=== PATIENT | female | born 1935 | race Caucasian/White ===

== ENCOUNTER 2020-10-20 17:54 | Emergency (ER) | payer MEDICARE, SELFPAY ==
--- NOTE | 2020-10-20 | XR_ITS ---
EXAMINATION: XR CHEST CLINICAL INFORMATION: General weakness COMPARISON: None TECHNIQUE: Frontal view of the chest was obtained. FINDINGS: There is asymmetric left base opacity. The appearance is more consistent with calcification, possibly a pleural plaque, rather than infiltrate. A lateral view could be helpful for evaluation. Right lung is clear. No pleural effusion or pneumothorax. Calcified aortic arch. Normal heart size. S-shaped thoracolumbar scoliosis. XR/XR chest 1V IMPRESSION: Asymmetric left base opacity. The appearance is more consistent with a calcification, such as a pleural plaque, rather than an infiltrate.
[2020-10-20 19:45] VITALS: BP 148/77; PULSE 87; RESP 14; TEMP 36.1; O2SAT 98
[2020-10-20 20:02] VITALS: BP 151/82; PULSE 90; RESP 16; TEMP 37.6; O2SAT 97; BMI 19.5
--- NOTE | 2020-10-20 20:11 | ECG_ITS ---
Test Reason : WEAKNESS Blood Pressure : / mmHG Vent. Rate : 073 BPM Atrial Rate : 073 BPM P-R Int : 148 ms QRS Dur : 070 ms QT Int : 376 ms P-R-T Axes : -10 -35 -03 degrees QTc Int : 414 ms Normal sinus rhythm Left axis deviation Minimal voltage criteria for LVH, may be normal variant Cannot rule out Anterior infarct (cited on or before 08-JAN-2012) Abnormal ECG When compared with ECG of 08-JAN-2012 10:05, No significant change was found Referred By: Generic ED Physician Electronically Signed By:Jb Reyna
--- NOTE | 2020-10-20 20:27 | ED.GENADULT ---
HPI - General Adult General Chief complaint: General Medical Stated complaint: weakness Time Seen by Provider: 10/20/20 20:25 Source: patient Mode of arrival: ambulatory Limitations: no limitations History of Present Illness HPI narrative: 85 y/o female with history of GERD, Acosta's esophagus, UTI's, HTN, DM2, HLD who presents to the ED with generalized weakness. Patient reports decreased PO intake with a 5 lb weight loss in 1 week. She has been having a hard time walking due to generalized leg weakness. She has a history of UTI's in the past but denies all urinary symptoms at this time. She denies fever, chills, nausea, vomiting, diarrhea, SOB, chest pain, or cough. She denies sick contacts. Spoke with her daughter who reports worsening tremors at home. Unsafe to walk around due to weakness and unsteady gait. She lives at home with her mentally challenged son. She went to the store this week and then could not get out of bed the rest of the day because she was so exhausted. MD complaint: generalized weakness Onset (ago): week(s) (1) Severity: moderate Relieving factors: rest Exacerbating factors: movement Associated symptoms: loss of appetite, malaise and weakness Treatments prior to arrival: none Related Data Allergies Allergy/AdvReac Type Severity Reaction Status Date / Time No Known Allergies Allergy Verified 10/20/20 20:02 Review of Systems Review of Systems: Constitutional: No Fever, No Chills ENT/Mouth: No sore throat, No Rhinorrhea Cardiovascular: No Chest Pain, No SOB, No Orthopnea, No Edema Respiratory: No Cough, No Sputum, No Wheezing, No dyspnea Gastrointestinal: No Nausea, No Vomiting, No Diarrhea, No abdominal Pain Genitourinary: No Dysuria, No Urinary Frequency, No Hematuria Musculoskeletal: No joint pain, No Myalgias Skin: No Skin Lesions, No rash Neuro: + Weakness, No Numbness, No Dizziness, No Headache, +tremors Psych: No Anxiety/Panic, No Depression Heme/Lymph: No Bruising, No Lymphadenopathy Endocrine: No Polyuria, No Polydipsia PMFSH Past Medical History Attestation statement: The following information was validated with the patient. Medical History Anxiety Hypertension Sepsis UTI (urinary tract infection) Surgical History (Updated 10/20/20 @ 20:09 by Belle Mei) H/O: hysterectomy Social History Social History Advance Directives: No Advance Directives Information Provided: Yes Physical Exam Vital Signs: Vital Signs: Last Vital Signs Temp 99.6 F 10/20/20 20:02 Pulse 90 10/20/20 20:02 Resp 16 10/20/20 20:02 BP 151/82 H 10/20/20 20:02 Pulse Ox 97 10/20/20 20:02 Body Mass Index 19.5 Appearance: Alert. Oriented X3. No acute distress. Eyes: Pupils equal, round and reactive to light. ENT: Pharynx normal. Neck: Normal inspection. Neck supple. CVS: Normal heart rate and rhythm. 4/5 systolic murmur Respiratory: No respiratory distress. Breath sounds normal. Abdomen: Soft and nontender. +BS x4 Skin: Skin warm and dry. Normal skin color. Normal skin turgor. No rashes. Extremities: No lower extremity edema. Negative Dylan's sign. Neuro: Oriented X 3. No motor deficit. No sensory deficit. Course Course Course Narrative: 85 y/o female presenting with generalized weakness, loss of appetite, weight loss x1 week. No other complaints. Exam is non-focal. Low suspicion for CVA given her examination and duration of symptoms. Concern for UTI given her history vs possible viral syndrome. VSS and she appears well on arrival. Will get cultures, lab workup, EKG. Signed out to Cherie Perez PA-C who will assume care. Medical Decision Making Lab Data Result diagrams: 10/20/20 20:43 10/20/20 20:43 Labs: Lab Results 10/20/20 10/20/20 10/20/20 Range/Units 20:42 20:43 20:43 WBC 6.5 (4.8-10.8) X10*3/uL RBC 4.34 (4.20-5.50) X10*6/uL Hgb 13.4 (12.0-16.0) g/dl Hct 39.9 (37-47) % MCV 91.9 (80-98) fL MCH 30.9 (27.0-33.0) pg MCHC 33.6 (31.0-35.0) g/dl RDW 11.5 (11.0-16.0) % Plt Count 217 (160-400) X10*3/uL MPV 10.2 (9.4-12.3) fL Immature Gran % (Auto) 0.3 (0.0-0.4) % Neut % (Auto) 60.5 (45-73) % Lymph % (Auto) 23.8 (20-40) % [facility] % (Auto) 14.3 H (2-11) % Eos % (Auto) 0.8 (0-4) % Baso % (Auto) 0.3 (0-2) % Lymph # (Auto) 1.6 (1.2-4.9) X10*3/uL [facility] # (Auto) 0.9 (0.1-1.2) X10*3/uL Eos # (Auto) 0.1 (0.0-0.4) X10*3/uL Baso # (Auto) 0.0 (0.0-0.2) X10*3/uL Abs Immat Gran (auto) 0.02 (0.00-0.03) X10*3/uL Absolute Neuts (auto) 4.0 (2.0-8.3) X10*3/uL Absolute Nucleated RBC 0.000 (0.0-0.012) X10*3/uL Nucleated RBC % (auto) 0.0 (0.0-0.2) /100WBC Hold Blue Top SEE NOTE Lactic Acid 0.9 (0.5-2.0) mmol/L Urine Color Urine Appearance Urine pH (5.0-8.0) Ur Specific [place] (1.005-1.025) Urine Protein (NEG-TRACE) MG/DL Urine Glucose (UA) (NEG) MG/DL Urine Ketones (NEG) MG/DL Urine Blood (NEG) Urine Nitrite (NEG) Ur Leukocyte Esterase (NEG) Urine RBC (0) /HPF Urine WBC (0-4) /HPF Ur Squamous Epith Cells /LPF Urine Bacteria /LPF 10/20/20 Range/Units 20:43 WBC (4.8-10.8) X10*3/uL RBC (4.20-5.50) X10*6/uL Hgb (12.0-16.0) g/dl Hct (37-47) % MCV (80-98) fL MCH (27.0-33.0) pg MCHC (31.0-35.0) g/dl RDW (11.0-16.0) % Plt Count (160-400) X10*3/uL MPV (9.4-12.3) fL Immature Gran % (Auto) (0.0-0.4) % Neut % (Auto) (45-73) % Lymph % (Auto) (20-40) % [facility] % (Auto) (2-11) % Eos % (Auto) (0-4) % Baso % (Auto) (0-2) % Lymph # (Auto) (1.2-4.9) X10*3/uL [facility] # (Auto) (0.1-1.2) X10*3/uL Eos # (Auto) (0.0-0.4) X10*3/uL Baso # (Auto) (0.0-0.2) X10*3/uL Abs Immat Gran (auto) (0.00-0.03) X10*3/uL Absolute Neuts (auto) (2.0-8.3) X10*3/uL Absolute Nucleated RBC (0.0-0.012) X10*3/uL Nucleated RBC % (auto) (0.0-0.2) /100WBC Hold Blue Top Lactic Acid (0.5-2.0) mmol/L Urine Color YELLOW Urine Appearance HAZY Urine pH 5.5 (5.0-8.0) Ur Specific [place] 1.020 (1.005-1.025) Urine Protein NEG (NEG-TRACE) MG/DL Urine Glucose (UA) NEG (NEG) MG/DL Urine Ketones 15 (NEG) MG/DL Urine Blood TRACE (NEG) Urine Nitrite POS H (NEG) Ur Leukocyte Esterase 1+ H (NEG) Urine RBC 0-2 (0) /HPF Urine WBC 15-29 H (0-4) /HPF Ur Squamous Epith Cells 3+ /LPF Urine Bacteria 4+ /LPF ECG Data Attestation: I personally reviewed and interpreted this ECG as follows: Interpretation: normal sinus rhythm HR 73 bpm, normal IL interval, left axis deviation, TWi in lead III and V1. no ST segment elevations.
[2020-10-20 21:00] LABS: Glucose Urine UA NEG (NEG); Leukocyte Esterase Urine 1+ (NEG); Nitrite Urine POS (NEG); PH 5.5 (5.0-8.0); Urine Blood TRACE (NEG); Urine Ketones 15 MG/DL (NEG); Urine Protein NEG (NEG-TRACE)
[2020-10-20 21:01] LABS: Color Urine YELLOW; MANUAL DIFF FLAG NO
[2020-10-20 21:02] LABS: Appearance Urine HAZY
[2020-10-20 21:03] LABS: Basophils Percent Auto 0.3 % (0-2); Eosinophils Absolute Auto 0.1 X10*3/uL (0.0-0.4); Eosinophils Percent Auto 0.8 % (0-4); Hematocrit 39.9 % (37-47); Hemoglobin 13.4 g/dl (12.0-16.0); Imm Gran Abs Auto 0.02 X10*3/uL (0.00-0.03); Imm Gran Pct Auto 0.3 % (0.0-0.4); Lymphocytes Absolute Auto 1.6 X10*3/uL (1.2-4.9); Lymphocytes Percent Auto 23.8 % (20-40); Mean Corpuscular HGB Conc 33.6 g/dl (31.0-35.0); Mean Corpuscular Hemoglobin 30.9 pg (27.0-33.0); Mean Corpuscular Volume 91.9 fL (80-98); Mean Platelet Volume 10.2 fL (9.4-12.3); Monocytes Absolute Auto 0.9 X10*3/uL (0.1-1.2); Monocytes Percent Auto 14.3 % (2-11); Neutrophils Percent Auto 60.5 % (45-73); Platelet Count 217 X10*3/uL (160-400); Red Blood Count 4.34 X10*6/uL (4.20-5.50); Red Cell Distribution Width 11.5 % (11.0-16.0); White Blood Count 6.5 X10*3/uL (4.8-10.8)
[2020-10-20 21:16] LABS: Bacteria Urine 4+ /LPF; RBC Urine 0-2 /HPF (0); Squamous Epithelial Cell Urine 3+ /LPF
[2020-10-20 21:23] LABS: Lactic Acid 0.9 mmol/L (0.5-2.0)
[2020-10-20 21:27] LABS: Alanine Aminotransferase 17 U/L (0-31); Alkaline Phosphatase 76 U/L (39-117); Anion Gap 14 (12-20); Aspartate Amino Transferase 17 U/L (5-31); Bilirubin Total 0.5 mg/dL (0.0-1.0); Blood Urea Nitrogen 13 mg/dL (9-16); Calcium 10.2 mg/dL (8.4-10.2); Carbon Dioxide 25 mmol/L (22-29); Chloride 103 mmol/L (96-108); Creatinine Clr Calc Pharmacy 40.7; Estimated Glomerular Filt Rate > 60; Glucose Random 125 mg/dL (60-115); Potassium 3.8 mmol/l (3.3-5.1); Sodium 138 mmol/L (135-145); Total Protein 6.5 g/dL (6.5-8.0)
[2020-10-20 22:57] LABS: Influenza A PCR NEGATIVE (Negative); Influenza B PCR NEGATIVE (Negative); Resp Syncy Virus RNA Qual PCR NEGATIVE (Negative); SARS COV2 PCR INHOUSE NEGATIVE (Negative)
[2020-10-20] MEDS: levoFLOXacin 500 MG TABLET 250 MG PO (23:06)
== END 2020-10-20 23:07 | disposition home or self-care (01) ==
PROVIDERS: Physician Assistant; Emergency Provider Internal Medicine; PCP Family Medicine
DX: R53.1 Weakness (principal); R63.4 Abnormal weight loss; R26.81 Unsteadiness on feet; Z79.899 Other long term (current) drug therapy; Z20.828 Contact with and (suspected) exposure to other viral communicable diseases
CPT/HCPCS: 0241U; 36415; 71045; 80053; 81001; 81003; 83605; 85025; 87040; 87077; 87086; 87088; 87186; 87205; 93005; 99284

== ENCOUNTER 2020-10-21 11:11 | Inpatient (IN) | payer MEDICARE, SELFPAY ==
[2020-10-21 11:24] VITALS: BP 183/77; PULSE 73; RESP 18; TEMP 36.7; O2SAT 96; BMI 18.9
--- NOTE | 2020-10-21 12:33 | ED_ITS ---
HPI - General Adult General Chief complaint: General Medical Stated complaint: sepsis? Time Seen by Provider: 10/21/20 12:33 Source: patient Mode of arrival: ambulatory Limitations: no limitations History of Present Illness HPI narrative: This is a pleasant 85-year-old female who presents as a call back for positive blood cultures. Medical history history as noted below; gastroesophageal reflux disease, Acosta's esophagus, recurrent UTI, hypertension, diabetes, hyperlipidemia. Related Data Home Medications Medication Instructions Recorded Confirmed aspirin 81 mg PO DAILY 10/21/20 10/21/20 atorvastatin 20 mg PO DAILY 10/21/20 10/21/20 bisoprolol fumarate 5 mg PO DAILY 10/21/20 10/21/20 doxazosin 2 mg PO DAILY 10/21/20 10/21/20 lorazepam 0.25 mg PO Q8H PRN 10/21/20 10/21/20 omeprazole 20 mg PO BID 10/21/20 10/21/20 Previous Rx's Medication Instructions Recorded levofloxacin 250 mg PO DAILY #4 tab 10/20/20 Allergies Allergy/AdvReac Type Severity Reaction Status Date / Time No Known Allergies Allergy Verified 10/21/20 11:24 Review of Systems Review of Systems: Constitutional: No Weight loss, No Fever, + Chills, No Night Sweats, No Fatigue, No Malaise ENT/Mouth: No Hearing loss, No Ear Pain, No Nasal Congestion, No Sinus Pain, No Hoarseness, No sore throat, No Rhinorrhea, No Swallowing Difficulty Eyes: No Eye Pain, No Swelling, No Redness, No Foreign Body, No Discharge, No Vision Changes Cardiovascular: No Chest Pain, No SOB, No Dyspnea on Exertion, No Orthopnea, No Edema, No Palpitations Respiratory: No Cough, No Sputum, No Wheezing, No Smoke Exposure, No Dyspnea Gastrointestinal: No Nausea, No Vomiting, No Diarrhea, No Constipation, No abdominal Pain, No Hematochezia, No Melena Genitourinary: no irregular bleeding, No Dysuria, No Urinary Frequency, No Hematuria, No Urinary Incontinence, No Urgency, No Flank Pain Musculoskeletal: No joint pain, + Myalgias, No Joint Swelling Skin: No Skin Lesions, No rash Neuro: Weakness, No Numbness, No Paresthesias, No Loss of Consciousness, No Dizziness, No Headache Psych: No Social Issues, Heme/Lymph: No Bruising, No Bleeding,No Lymphadenopathy Endocrine: No Polyuria, No Polydipsia, No Temperature Intolerance Yes all other systems are reviewed and are negative [facility] Past Medical History Medical History Anxiety Hypertension Sepsis UTI (urinary tract infection) Surgical History H/O: hysterectomy Social History Social History Alcohol intake: never Smoking Status: Never smoker Use of substances other than those prescribed or required for medical reasons: No Advance Directives: No Advance Directives Information Provided: Yes Physical Exam Vital Signs: Vital Signs: Last Vital Signs Temp 98.1 F 10/21/20 14:56 Pulse 68 10/21/20 14:56 Resp 18 10/21/20 14:56 BP 151/71 H 10/21/20 14:56 Pulse Ox 98 10/21/20 14:56 Body Mass Index 18.9 Reviewed Const: General: cooperative; No acute distress or intoxicated appearing Nutritional Appearance: average body habitus Orientation/consciousness: patient oriented x3 HENMT: Head: Yes normal to inspection Ears: hearing grossly normal bilaterally Eyes: General: appearance normal, both eyes and all related structures Visual Ballesteros: normal visual ballesteros by confrontation Neck: Neck: Yes normal visual inspection, No positive Brudzinski's sign, No positive Kernig's sign and No tender Thyroid: Thyroid normal Chest: Chest palpation & inspection: normal inspection of the chest Resp: Effort & Inspection: normal respiratory effort Auscultation: clear to auscultation bilaterally Cardio: Jugular venous distension: no JVD Rhythm: regular rhythm Heart sounds: S1 normal heart sound present and S2 normal heart sound present GI: Inspection: Yes normal to inspection Percussion: Yes normal to percussion Auscultation: normal bowel sounds : General: Yes no CVA tenderness Back/Spine/Pelvis: Back: no CVA tenderness Skin: General skin exam: no rashes or lesions noted Neuro: General: patient oriented x3 Extrem: General: Yes normal to inspection Course Course Course Narrative: 85-year-old above history return visit for positive blood cultures with Gram-negative rods blood culture 1. Positive urine culture with Gram-negative rods as well with no sensitivity available. She does report chills this and mild myalgias otherwise states this is sort of unusual for her she normally would have some sort of dysuria with her urinary symptoms the last couple infection she has not had any dysuria is any she will get the UTIs. Denies any abdominal pain, vaginal bleeding or discharge. No nausea vomiting diarrhea. No chest pain or shortness of breath. Labs reviewed including cultures. Given the positive blood culture or will repeat labs including lactic acid and blood cultures and she got dose of Levaquin yesterday and just picked up her today's dose has not taken yet. We will go ahead and give her dose of IV Levaquin. Reevaluation(s) Reevaluation #1: Labs overall stable. No leukocytosis, afebrile, non tachy. UA negative today this could be secondary to the fact that she has been on antibiotics. Given the positive bacteremia given dose of IV Levaquin repeat labs and plan for admission. Consultations Consultation #1: Case discussed with hospitalist for admission. Medical Decision Making Lab Data Result diagrams: 10/21/20 13:00 10/21/20 13:00 Labs: Lab Results 10/21/20 10/21/20 10/21/20 Range/Units 13:00 13:00 13:00 WBC 5.4 (4.8-10.8) X10*3/uL RBC 4.25 (4.20-5.50) X10*6/uL Hgb 13.2 (12.0-16.0) g/dl Hct 39.3 (37-47) % MCV 92.5 (80-98) fL MCH 31.1 (27.0-33.0) pg MCHC 33.6 (31.0-35.0) g/dl RDW 11.5 (11.0-16.0) % Plt Count 204 (160-400) X10*3/uL MPV 10.1 (9.4-12.3) fL Immature Gran % (Auto) 0.2 (0.0-0.4) % Neut % (Auto) 64.3 (45-73) % Lymph % (Auto) 21.4 (20-40) % [place] % (Auto) 13.2 H (2-11) % Eos % (Auto) 0.7 (0-4) % Baso % (Auto) 0.2 (0-2) % Lymph # (Auto) 1.2 (1.2-4.9) X10*3/uL [place] # (Auto) 0.7 (0.1-1.2) X10*3/uL Eos # (Auto) 0.0 (0.0-0.4) X10*3/uL Baso # (Auto) 0.0 (0.0-0.2) X10*3/uL Abs Immat Gran (auto) 0.01 (0.00-0.03) X10*3/uL Absolute Neuts (auto) 3.5 (2.0-8.3) X10*3/uL Absolute Nucleated RBC 0.000 (0.0-0.012) X10*3/uL Nucleated RBC % (auto) 0.0 (0.0-0.2) /100WBC PT 13.5 H (10.8-13.0) SEC INR 1.1 (0.9-1.1) APTT 46.3 H (24.1-38.0) SEC Sodium 137 (135-145) mmol/L Potassium 4.0 (3.3-5.1) mmol/l Chloride 102 (96-108) mmol/L Carbon Dioxide 24 (22-29) mmol/L Anion Gap 15 (12-20) BUN 11 (9-16) mg/dL Creatinine 0.74 (0.5-1.4) mg/dL Estim Creat Clear Calc 41.9 Estimated GFR > 60 Random Glucose 123 H (60-115) mg/dL Lactic Acid (0.5-2.0) mmol/L Calcium 10.1 (8.4-10.2) mg/dL Total Bilirubin 0.6 (0.0-1.0) mg/dL AST 16 (5-31) U/L ALT 14 (0-31) U/L Alkaline Phosphatase 71 (39-117) U/L Total Protein 6.4 L (6.5-8.0) g/dL Albumin 3.9 (3.5-5.0) g/dL Urine Color Urine Appearance Urine pH (5.0-8.0) Ur Specific [place] (1.005-1.025) Urine Protein (NEG-TRACE) MG/DL Urine Glucose (UA) (NEG) MG/DL Urine Ketones (NEG) MG/DL Urine Blood (NEG) Urine Nitrite (NEG) Ur Leukocyte Esterase (NEG) Urine RBC (0) /HPF Urine WBC (0-4) /HPF Ur Squamous Epith Cells /LPF Urine Bacteria /LPF 10/21/20 10/21/20 Range/Units 13:00 13:00 WBC (4.8-10.8) X10*3/uL RBC (4.20-5.50) X10*6/uL Hgb (12.0-16.0) g/dl Hct (37-47) % MCV (80-98) fL MCH (27.0-33.0) pg MCHC (31.0-35.0) g/dl RDW (11.0-16.0) % Plt Count (160-400) X10*3/uL MPV (9.4-12.3) fL Immature Gran % (Auto) (0.0-0.4) % Neut % (Auto) (45-73) % Lymph % (Auto) (20-40) % [place] % (Auto) (2-11) % Eos % (Auto) (0-4) % Baso % (Auto) (0-2) % Lymph # (Auto) (1.2-4.9) X10*3/uL [place] # (Auto) (0.1-1.2) X10*3/uL Eos # (Auto) (0.0-0.4) X10*3/uL Baso # (Auto) (0.0-0.2) X10*3/uL Abs Immat Gran (auto) (0.00-0.03) X10*3/uL Absolute Neuts (auto) (2.0-8.3) X10*3/uL Absolute Nucleated RBC (0.0-0.012) X10*3/uL Nucleated RBC % (auto) (0.0-0.2) /100WBC PT (10.8-13.0) SEC INR (0.9-1.1) APTT (24.1-38.0) SEC Sodium (135-145) mmol/L Potassium (3.3-5.1) mmol/l Chloride (96-108) mmol/L Carbon Dioxide (22-29) mmol/L Anion Gap (12-20) BUN (9-16) mg/dL Creatinine (0.5-1.4) mg/dL Estim Creat Clear Calc Estimated GFR Random Glucose (60-115) mg/dL Lactic Acid 1.2 (0.5-2.0) mmol/L Calcium (8.4-10.2) mg/dL Total Bilirubin (0.0-1.0) mg/dL AST (5-31) U/L ALT (0-31) U/L Alkaline Phosphatase (39-117) U/L Total Protein (6.5-8.0) g/dL Albumin (3.5-5.0) g/dL Urine Color YELLOW Urine Appearance CLEAR Urine pH 5.5 (5.0-8.0) Ur Specific [place] <= 1.005 (1.005-1.025) Urine Protein NEG (NEG-TRACE) MG/DL Urine Glucose (UA) NEG (NEG) MG/DL Urine Ketones NEG (NEG) MG/DL Urine Blood NEG (NEG) Urine Nitrite NEG (NEG) Ur Leukocyte Esterase NEG (NEG) Urine RBC 0 (0) /HPF Urine WBC 0 (0-4) /HPF Ur Squamous Epith Cells 1+ /LPF Urine Bacteria NONE /LPF Discharge Plan Discharge Clinical Impression: Urinary tract infection, Bacteremia Patient Disposition: Admitted As Inpatient Prescriptions: No Action levofloxacin 250 mg tablet 250 mg PO DAILY Qty: 4 RF: 0 doxazosin 2 mg Tablet 2 mg PO DAILY RF: 0 lorazepam 0.5 mg Tablet 0.25 mg PO Q8H PRN (Reason: Anxiety) RF: 0 omeprazole 20 mg Capsule,Delayed Release(Dr/Ec) 20 mg PO BID RF: 0 atorvastatin 20 mg Tablet 20 mg PO DAILY RF: 0 bisoprolol fumarate 5 mg Tablet 5 mg PO DAILY RF: 0 aspirin 81 mg Tablet 81 mg PO DAILY RF: 0
[2020-10-21] MEDS: 0.9 % Sodium Chloride 500 ML IV (13:00)
--- NOTE | 2020-10-21 13:02 | PC.NURSE ---
iv inserted, labs drawn, ivf running per order, pharmacy in speaking with patient
[2020-10-21] MEDS: levoFLOXacin/D5W 750 MG/150 ML PIGGYBACK 100 MG IV (13:14)
--- NOTE | 2020-10-21 13:16 | PC.NURSE ---
urine obtained, abx started per order, will continue to monitor.
[2020-10-21 13:19] LABS: Basophils Percent Auto 0.2 % (0-2); Eosinophils Percent Auto 0.7 % (0-4); Hematocrit 39.3 % (37-47); Hemoglobin 13.2 g/dl (12.0-16.0); Imm Gran Abs Auto 0.01 X10*3/uL (0.00-0.03); Imm Gran Pct Auto 0.2 % (0.0-0.4); Lymphocytes Absolute Auto 1.2 X10*3/uL (1.2-4.9); Lymphocytes Percent Auto 21.4 % (20-40); MANUAL DIFF FLAG NO; Mean Corpuscular HGB Conc 33.6 g/dl (31.0-35.0); Mean Corpuscular Hemoglobin 31.1 pg (27.0-33.0); Mean Corpuscular Volume 92.5 fL (80-98); Mean Platelet Volume 10.1 fL (9.4-12.3); Monocytes Absolute Auto 0.7 X10*3/uL (0.1-1.2); Monocytes Percent Auto 13.2 % (2-11); Neutrophils Absolute Auto 3.5 X10*3/uL (2.0-8.3); Neutrophils Percent Auto 64.3 % (45-73); Platelet Count 204 X10*3/uL (160-400); Red Blood Count 4.25 X10*6/uL (4.20-5.50); Red Cell Distribution Width 11.5 % (11.0-16.0); White Blood Count 5.4 X10*3/uL (4.8-10.8)
[2020-10-21 13:20] LABS: Glucose Urine UA NEG (NEG); Leukocyte Esterase Urine NEG (NEG); Nitrite Urine NEG (NEG); PH 5.5 (5.0-8.0); Specific Gravity - Urine <= 1.005 (1.005-1.025); Urine Blood NEG (NEG); Urine Ketones NEG (NEG); Urine Protein NEG (NEG-TRACE)
[2020-10-21 13:22] LABS: INTERNATIONAL NORM RATIO 1.1 (0.9-1.1); Prothrombin Time 13.5 SEC (10.8-13.0)
[2020-10-21 13:24] LABS: Appearance Urine CLEAR; Color Urine YELLOW
[2020-10-21 13:25] LABS: Partial Thromboplastin Time 46.3 SEC (24.1-38.0)
[2020-10-21 13:26] LABS: RBC Urine 0 /HPF (0); Squamous Epithelial Cell Urine 1+ /LPF; WBC Urine 0 /HPF (0-4)
[2020-10-21 13:43] LABS: Lactic Acid 1.2 mmol/L (0.5-2.0)
[2020-10-21 13:49] LABS: Alanine Aminotransferase 14 U/L (0-31); Albumin Level 3.9 g/dL (3.5-5.0); Alkaline Phosphatase 71 U/L (39-117); Anion Gap 15 (12-20); Aspartate Amino Transferase 16 U/L (5-31); Bilirubin Total 0.6 mg/dL (0.0-1.0); Blood Urea Nitrogen 11 mg/dL (9-16); Calcium 10.1 mg/dL (8.4-10.2); Carbon Dioxide 24 mmol/L (22-29); Chloride 102 mmol/L (96-108); Creatinine Clr Calc Pharmacy 41.9; Estimated Glomerular Filt Rate > 60; Glucose Random 123 mg/dL (60-115); Sodium 137 mmol/L (135-145); Total Protein 6.4 g/dL (6.5-8.0)
[2020-10-21 13:58] LABS: Influenza A PCR NEGATIVE (Negative); Influenza B PCR NEGATIVE (Negative); Resp Syncy Virus RNA Qual PCR NEGATIVE (Negative); SARS COV2 PCR INHOUSE NEGATIVE (Negative)
[2020-10-21 14:56] VITALS: BP 151/71; PULSE 68; RESP 18; TEMP 36.7; O2SAT 98
--- NOTE | 2020-10-21 14:57 | PC.NURSE ---
patient a&ox3, watching tv- ambulated to bathroom stby assist, vss, will continue to monitor.
--- NOTE | 2020-10-21 15:45 | PM.EVENT ---
Event Note Date of Service: 10/21/20 Event Note: Patient seen and examined independently and was present during mckenna portion of E/M service. Agree with midlevel's history, physical, assessment, and plan. 85F called in for gnr bacteremia uti with bacteremia ceftriaxone, follow up cultures
--- NOTE | 2020-10-21 16:31 | PM.IMHP ---
History of Present Illness Date of Service: 10/21/20 Chief Complaint: Positive blood cultures This is an 85-year-old female who was diagnosed yesterday with a UTI. she was discharged home with levofloxacin. 1/2 blood cultures were positive for Gram-negative rods and she was called to return to the emergency department. She reports feeling weak and somewhat shaky. He denotes also indicated complaints of chills however she denies at this time. She denies any dysuria, hematuria, polyuria, nausea or vomiting. She denies any abdominal pain or back pain. Today she is afebrile with no leukocytosis. She was given a dose of IV levofloxacin in the decision was made to admit her for further management. Review of Systems Review of Systems: Yes all other systems are reviewed and are negative Constitutional: Constitutional: Denies chills and Denies fever(s) Cardiovascular: Cardiovascular: Denies chest pain Respiratory: Respiratory: Denies cough Gastrointestinal: Gastrointestinal: Denies abdominal pain [facility] Medical History Anxiety GERD (gastroesophageal reflux disease) HLD (hyperlipidemia) Hypertension Sepsis UTI (urinary tract infection) Functional capacity: independent ambulation Family history: reviewed and not pertinent Surgical History H/O: hysterectomy Social History Alcohol intake: never Smoking Status: Never smoker Use of substances other than those prescribed or required for medical reasons: No Advance Directives: No Advance Directives Information Provided: Yes Meds Allergies Allergy/AdvReac Type Severity Reaction Status Date / Time No Known Allergies Allergy Verified 10/21/20 11:24 Home Medications Medication Instructions Recorded Confirmed Type aspirin 81 mg PO DAILY 10/21/20 10/21/20 History atorvastatin 20 mg PO DAILY 10/21/20 10/21/20 History bisoprolol fumarate 5 mg PO DAILY 10/21/20 10/21/20 History doxazosin 2 mg PO DAILY 10/21/20 10/21/20 History lorazepam 0.25 mg PO Q8H PRN 10/21/20 10/21/20 History omeprazole 20 mg PO BID 10/21/20 10/21/20 History Physical Exam Vital Signs and Narrative: Vital Signs: Last Vital Signs Temp 98.1 F 10/21/20 14:56 Pulse 68 10/21/20 14:56 Resp 18 10/21/20 14:56 BP 151/71 H 10/21/20 14:56 Pulse Ox 98 10/21/20 14:56 Body Mass Index 18.9 Const: Nutritional Appearance: well nourished Orientation/consciousness: patient oriented x3 HENMT: Head: Yes normocephalic and Yes atraumatic Eyes: Sclerae: sclerae normal Chest: Chest palpation & inspection: normal inspection of the chest Resp: Effort & Inspection: normal respiratory effort and no respiratory distress Auscultation: clear to auscultation bilaterally Cardio: Rate: regular rate Rhythm: regular rhythm Heart sounds: Murmur heart sound present systolic GI: Palpation (GI): Soft to palpation and nontender Skin: General skin exam: no rashes or lesions noted Neuro: General: patient oriented x3 Cranial nerves: Yes CN's II-XII intact bilaterally and Yes Bilaterally intact EOM present Extrem: General: Yes normal to inspection Results Labs CBC and Chem 7: 10/21/20 13:00 10/21/20 13:00 Labs: Laboratory Results - last 24 hr 10/21/20 10/21/20 10/21/20 13:00 13:00 13:00 MCV 92.5 MCH 31.1 MCHC 33.6 RDW 11.5 Plt Count 204 MPV 10.1 Immature Gran % (Auto) 0.2 Neut % (Auto) 64.3 Lymph % (Auto) 21.4 [place] % (Auto) 13.2 H Eos % (Auto) 0.7 Baso % (Auto) 0.2 Lymph # (Auto) 1.2 [place] # (Auto) 0.7 Eos # (Auto) 0.0 Baso # (Auto) 0.0 Abs Immat Gran (auto) 0.01 Absolute Neuts (auto) 3.5 Absolute Nucleated RBC 0.000 Nucleated RBC % (auto) 0.0 PT 13.5 H INR 1.1 APTT 46.3 H Anion Gap 15 Estim Creat Clear Calc 41.9 Estimated GFR > 60 Random Glucose 123 H Lactic Acid Calcium 10.1 Total Bilirubin 0.6 AST 16 ALT 14 Alkaline Phosphatase 71 Total Protein 6.4 L Albumin 3.9 Urine Color Urine Appearance Urine pH Ur Specific [place] Urine Protein Urine Glucose (UA) Urine Ketones Urine Blood Urine Nitrite Ur Leukocyte Esterase Urine RBC Urine WBC Ur Squamous Epith Cells Urine Bacteria Coronavirus (PCR) Influenza Type A (PCR) Influenza Type B (PCR) RSV RNA Qual (PCR) 10/21/20 10/21/20 10/21/20 13:00 13:00 13:00 MCV MCH MCHC RDW Plt Count MPV Immature Gran % (Auto) Neut % (Auto) Lymph % (Auto) [place] % (Auto) Eos % (Auto) Baso % (Auto) Lymph # (Auto) [place] # (Auto) Eos # (Auto) Baso # (Auto) Abs Immat Gran (auto) Absolute Neuts (auto) Absolute Nucleated RBC Nucleated RBC % (auto) PT INR APTT Anion Gap Estim Creat Clear Calc Estimated GFR Random Glucose Lactic Acid 1.2 Calcium Total Bilirubin AST ALT Alkaline Phosphatase Total Protein Albumin Urine Color YELLOW Urine Appearance CLEAR Urine pH 5.5 Ur Specific [place] <= 1.005 Urine Protein NEG Urine Glucose (UA) NEG Urine Ketones NEG Urine Blood NEG Urine Nitrite NEG Ur Leukocyte Esterase NEG Urine RBC 0 Urine WBC 0 Ur Squamous Epith Cells 1+ Urine Bacteria NONE Coronavirus (PCR) NEGATIVE Influenza Type A (PCR) NEGATIVE Influenza Type B (PCR) NEGATIVE RSV RNA Qual (PCR) NEGATIVE Assessment and Plan (1) Urinary tract infection: Status: Acute (2) Bacteremia: Status: Acute This is an 85 year female with history of hypertension, dyslipidemia, anxiety, GERD diagnosed with UTI yesterday in the emergency department called to return due to 1 2 blood cultures growing gram negative rods Gram-negative bacteremia UTI no sepsis 1/2 BCx growing gram neg rods IV ceftriaxone Follow-up sensitivities of urine and blood cultures HLD Continue statin Hypertension Continue bisprolol and doxazosin GERD Continue omeprazole Anxiety Continue Ativan DVT prophylaxis-Lovenox Code status full code This case was discussed with
[2020-10-21] MEDS: Enoxaparin Sodium 40 MG/0.4 ML SYRINGE SUBCUT (18:31)
[2020-10-21 18:33] VITALS: BP 138/66; PULSE 74; RESP 18; TEMP 36.7; O2SAT 97
--- NOTE | 2020-10-21 18:35 | PC.NURSE ---
patient a&ox3, vss, pt watching tv and eating dinner, will continue to monito.
[2020-10-21] MEDS: Omeprazole 20 MG CAPSULE.DR PO (21:35)
[2020-10-21 21:36] VITALS: BP 165/75; PULSE 74; RESP 18; TEMP 36.8; O2SAT 97
--- NOTE | 2020-10-21 21:39 | PC.NURSE ---
patient medicated per order, vss, pt awaiting inpt bed, ambulated to bathroom with assist, will continue to monitor.
[2020-10-22 04:52] VITALS: BP 185/81; PULSE 93; RESP 16; O2SAT 97
[2020-10-22 06:44] LABS: Basophils Percent Auto 0.4 % (0-2); Eosinophils Absolute Auto 0.1 X10*3/uL (0.0-0.4); Eosinophils Percent Auto 1.9 % (0-4); Hematocrit 37.6 % (37-47); Hemoglobin 12.8 g/dl (12.0-16.0); Imm Gran Abs Auto 0.03 X10*3/uL (0.00-0.03); Imm Gran Pct Auto 0.6 % (0.0-0.4); Lymphocytes Absolute Auto 1.4 X10*3/uL (1.2-4.9); Lymphocytes Percent Auto 25.6 % (20-40); Mean Corpuscular Hemoglobin 31.1 pg (27.0-33.0); Mean Corpuscular Volume 91.5 fL (80-98); Mean Platelet Volume 10.6 fL (9.4-12.3); Monocytes Absolute Auto 0.6 X10*3/uL (0.1-1.2); Monocytes Percent Auto 11.2 % (2-11); Neutrophils Absolute Auto 3.2 X10*3/uL (2.0-8.3); Neutrophils Percent Auto 60.3 % (45-73); Platelet Count 195 X10*3/uL (160-400); Red Blood Count 4.11 X10*6/uL (4.20-5.50); Red Cell Distribution Width 11.4 % (11.0-16.0); White Blood Count 5.3 X10*3/uL (4.8-10.8)
[2020-10-22 06:48] LABS: MANUAL DIFF FLAG NO
[2020-10-22 07:05] LABS: Anion Gap 13 (12-20); Blood Urea Nitrogen 9 mg/dL (9-16); Calcium 9.9 mg/dL (8.4-10.2); Carbon Dioxide 22 mmol/L (22-29); Chloride 107 mmol/L (96-108); Estimated Glomerular Filt Rate > 60; Glucose Random 98 mg/dL (60-115); Potassium 3.9 mmol/l (3.3-5.1); Sodium 138 mmol/L (135-145)
[2020-10-22] MEDS: cefTRIAXone sodium 1 GM in 0.9 % Sodium Chloride 50 ML IV (07:21)
--- NOTE | 2020-10-22 08:01 | PC.NURSE ---
report given to med/surgical aides teacher
[2020-10-22 08:15] VITALS: BP 151/75; PULSE 80; RESP 18; TEMP 36.4; O2SAT 100
--- NOTE | 2020-10-22 09:17 | MHC.CM.PN ---
PT REPORTS SHE LIVES WITH HER SON AND IS INDEPENDENT WITH ALL CARE AND MOBILITY. PT HAS NO HOME SERVICES, SHE REPORTS SHE HAS A WALKER BUT DOES NOT USE IT AT THIS TIME. PT DID NOT HAVE A HCP BUT COMPLETED ONE TODAY NAMING HER DAUGHTER, KEITH GIRON ([phone]) HER AGENT. PT CONFIRMS HER PCP IS ASHVIN STOVER. IMM DELIVERED PT CURRENT DC PLAN IS HOME WITH NO SERVICES PTS DAUGHTER WILL TRANSPORT
[2020-10-22] MEDS: 0.9 % Sodium Chloride Flush 3 ML SYRINGE IVFLUSH ×2 (09:58)
[2020-10-22] MEDS: Doxazosin Mesylate 2 MG TABLET PO (09:59)
[2020-10-22] MEDS: Atorvastatin Calcium 20 MG TABLET PO (10:00)
[2020-10-22] MEDS: Aspirin Enteric Coated 81 MG TABLET.DR PO (10:00)
[2020-10-22] MEDS: Omeprazole 20 MG CAPSULE.DR PO (10:00)
[2020-10-22] MEDS: Bisoprolol Fumarate 5 MG TABLET PO (10:00)
--- NOTE | 2020-10-22 10:21 | PM.DS ---
DS: Providers Provider Date of Service: 10/22/20 Date of admission: 10/21/20 16:15 Primary care physician: Angel Jacobson MD DS: Diagnosis Discharge Diagnosis (1) Urinary tract infection: Status: Acute (2) Bacteremia: Status: Acute DS: Medications Discharge Medications Home Medications: Home Medications Medication Instructions Recorded Confirmed aspirin 81 mg PO DAILY 10/21/20 10/21/20 atorvastatin 20 mg PO DAILY 10/21/20 10/21/20 bisoprolol fumarate 5 mg PO DAILY 10/21/20 10/21/20 doxazosin 2 mg PO DAILY 10/21/20 10/21/20 lorazepam 0.25 mg PO Q8H PRN 10/21/20 10/21/20 omeprazole 20 mg PO BID 10/21/20 10/21/20 Previous Rx's Medication Instructions Recorded levofloxacin 750 mg PO DAILY #5 tab 10/22/20 DS: Summary Hospital Course Hospital Course: Patient was admitted for urinary tract infection complicated by bacteremia. She was treated with IV ceftriaxone. Her urine culture grew pansensitive E coli. Blood cultures is still pending but expected to be similar, patient preference is to follow them up at home. Patient was not septic and is feeling back to normal. She will be discharged home on Levaquin 750 mg daily for 5 more days. Her final blood culture should be followed up and antibiotics adjusted if necessary. Time Spent with Patient Time attestation: Total time spent providing and/or coordinating discharge services: Discharge coordination time: Greater than 30 minutes Physical Exam Vital Signs: Vital Signs: Last Vital Signs Temp 97.6 F 10/22/20 08:15 Pulse 80 10/22/20 08:15 Resp 18 10/22/20 08:15 BP 151/75 H 10/22/20 08:15 Pulse Ox 100 10/22/20 08:15 Body Mass Index 18.9 General: AO X 3, no acute distress Resp: CTA bilateral CVS: S1,S2,RRR GI: soft, non tender, non distended Neuro: motor grossly intact Psych: appropriate affect DS: Data Data Completed and Pending Labs on day of discharge: 10/21/20 12:33 0.9 % Sodium Chloride [Ns] 500 ml IV 500 mls/hr 10/21/20 12:48 levoFLOXacin/D5W [Levaquin] 750 mg in 150 ml IV ONCE 10/21/20 13:00 Complete Blood Count Auto Diff Stat Comprehensive Met. Panel Stat Lactic Acid Stat Partial Thromboplastin Time Stat Prothrombin Time INR Stat SARS-CoV2/FLU/RSV Stat UA ClnCatch+Micro w/rflx Cult Stat 10/21/20 16:00 Transfer Order Routine 10/22/20 06:38 Basic Metabolic Panel DAILY@0600 Complete Blood Count Auto Diff DAILY@0600 10/22/20 07:12 cefTRIAXone sodium [Rocephin] 1 gm .ROUTE .STK-MED ONE Laboratory Last Values WBC 5.3 X10*3/uL (4.8-10.8) 10/22/20 06:38 RBC 4.11 X10*6/uL (4.20-5.50) L 10/22/20 06:38 Hgb 12.8 g/dl (12.0-16.0) 10/22/20 06:38 Hct 37.6 % (37-47) 10/22/20 06:38 MCV 91.5 fL (80-98) 10/22/20 06:38 MCH 31.1 pg (27.0-33.0) 10/22/20 06:38 MCHC 34.0 g/dl (31.0-35.0) 10/22/20 06:38 RDW 11.4 % (11.0-16.0) 10/22/20 06:38 Plt Count 195 X10*3/uL (160-400) 10/22/20 06:38 MPV 10.6 fL (9.4-12.3) 10/22/20 06:38 Immature Gran % (Auto) 0.6 % (0.0-0.4) H 10/22/20 06:38 Neut % (Auto) 60.3 % (45-73) 10/22/20 06:38 Lymph % (Auto) 25.6 % (20-40) 10/22/20 06:38 [place] % (Auto) 11.2 % (2-11) H 10/22/20 06:38 Eos % (Auto) 1.9 % (0-4) 10/22/20 06:38 Baso % (Auto) 0.4 % (0-2) 10/22/20 06:38 Lymph # (Auto) 1.4 X10*3/uL (1.2-4.9) 10/22/20 06:38 [place] # (Auto) 0.6 X10*3/uL (0.1-1.2) 10/22/20 06:38 Eos # (Auto) 0.1 X10*3/uL (0.0-0.4) 10/22/20 06:38 Baso # (Auto) 0.0 X10*3/uL (0.0-0.2) 10/22/20 06:38 Abs Immat Gran (auto) 0.03 X10*3/uL (0.00-0.03) 10/22/20 06:38 Absolute Neuts (auto) 3.2 X10*3/uL (2.0-8.3) 10/22/20 06:38 Absolute Nucleated RBC 0.000 X10*3/uL (0.0-0.012) 10/22/20 06:38 Nucleated RBC % (auto) 0.0 /100WBC (0.0-0.2) 10/22/20 06:38 PT 13.5 SEC (10.8-13.0) H 10/21/20 13:00 INR 1.1 (0.9-1.1) 10/21/20 13:00 APTT 46.3 SEC (24.1-38.0) H 10/21/20 13:00 Sodium 138 mmol/L (135-145) 10/22/20 06:38 Potassium 3.9 mmol/l (3.3-5.1) 10/22/20 06:38 Chloride 107 mmol/L (96-108) 10/22/20 06:38 Carbon Dioxide 22 mmol/L (22-29) 10/22/20 06:38 Anion Gap 13 (12-20) 10/22/20 06:38 BUN 9 mg/dL (9-16) 10/22/20 06:38 Creatinine 0.66 mg/dL (0.5-1.4) 10/22/20 06:38 Estim Creat Clear Calc 47.0 10/22/20 06:38 Estimated GFR > 60 10/22/20 06:38 Random Glucose 98 mg/dL (60-115) 10/22/20 06:38 Lactic Acid 1.2 mmol/L (0.5-2.0) 10/21/20 13:00 Calcium 9.9 mg/dL (8.4-10.2) 10/22/20 06:38 Total Bilirubin 0.6 mg/dL (0.0-1.0) 10/21/20 13:00 AST 16 U/L (5-31) 10/21/20 13:00 ALT 14 U/L (0-31) 10/21/20 13:00 Alkaline Phosphatase 71 U/L (39-117) 10/21/20 13:00 Total Protein 6.4 g/dL (6.5-8.0) L 10/21/20 13:00 Albumin 3.9 g/dL (3.5-5.0) 10/21/20 13:00 Urine Color YELLOW 10/21/20 13:00 Urine Appearance CLEAR 10/21/20 13:00 Urine pH 5.5 (5.0-8.0) 10/21/20 13:00 Ur Specific [place] <= 1.005 (1.005-1.025) 10/21/20 13:00 Urine Protein NEG MG/DL (NEG-TRACE) 10/21/20 13:00 Urine Glucose (UA) NEG MG/DL (NEG) 10/21/20 13:00 Urine Ketones NEG MG/DL (NEG) 10/21/20 13:00 Urine Blood NEG (NEG) 10/21/20 13:00 Urine Nitrite NEG (NEG) 10/21/20 13:00 Ur Leukocyte Esterase NEG (NEG) 10/21/20 13:00 Urine RBC 0 /HPF (0) 10/21/20 13:00 Urine WBC 0 /HPF (0-4) 10/21/20 13:00 Ur Squamous Epith Cells 1+ /LPF 10/21/20 13:00 Urine Bacteria NONE /LPF 10/21/20 13:00 Coronavirus (PCR) NEGATIVE (Negative) 10/21/20 13:00 Influenza Type A (PCR) NEGATIVE (Negative) 10/21/20 13:00 Influenza Type B (PCR) NEGATIVE (Negative) 10/21/20 13:00 RSV RNA Qual (PCR) NEGATIVE (Negative) 10/21/20 13:00 Discharge Plan Discharge Patient Disposition: Home, Self-Care Referrals: Angel Jacobson MD [Primary Care Provider] - Discharge Medications: New levofloxacin 750 mg tablet 750 mg PO DAILY Qty: 5 RF: 0 Continued doxazosin 2 mg Tablet 2 mg PO DAILY RF: 0 lorazepam 0.5 mg Tablet 0.25 mg PO Q8H PRN (Reason: Anxiety) RF: 0 omeprazole 20 mg Capsule,Delayed Release(Dr/Ec) 20 mg PO BID RF: 0 atorvastatin 20 mg Tablet 20 mg PO DAILY RF: 0 bisoprolol fumarate 5 mg Tablet 5 mg PO DAILY RF: 0 aspirin 81 mg Tablet 81 mg PO DAILY RF: 0 Discontinued levofloxacin 250 mg tablet 250 mg PO DAILY Qty: 4 RF: 0 Discharge Orders: Discharge Order (Routine); Ordered 10/22/20 Ordered By: Tristan Sprague Activity on Discharge: As tolerated Visit Report Forms: Patient Portal Discharge page Care Plan Goals: resolve uti/bacteremia Health Concerns: uti Plan of Treatment: increase levaquin to 750mg daily for 5 more days, follow up final culutres and adjust antibiotics if needed
--- NOTE | 2020-10-22 10:22 | MHC.CM.PN ---
Pt will DC home today with no services. Pts daughter will transport.
[2020-10-22 11:37] VITALS: BP 154/78; PULSE 93; RESP 18; TEMP 36.6; O2SAT 96
== END 2020-10-22 12:10 | disposition home or self-care (01) | DRG 690 ==
LOC: HO.ED 16:09 → HO.S3 10-22 05:05
PROVIDERS: Nurse Practitioner Primary Care; Physician Assistant Medical; Admitting Provider Internal Medicine; Emergency Provider Emergency Medicine Emergency Medical Services; PCP Family Medicine; Visit Provider Internal Medicine
DX: N39.0 Urinary tract infection, site not specified (principal); R78.81 Bacteremia; K21.9 Gastro-esophageal reflux disease without esophagitis; F41.9 Anxiety disorder, unspecified; B96.20 Unspecified Escherichia coli [E. coli] as the cause of diseases classified elsewhere; E78.5 Hyperlipidemia, unspecified; I10 Essential (primary) hypertension; Z20.822 Contact with and (suspected) exposure to COVID-19; Z79.82 Long term (current) use of aspirin; Z79.899 Other long term (current) drug therapy
CPT/HCPCS: 0241U; 36415; 80048; 80053; 81001; 83605; 85025; 85610; 85730; 87040; 96361; 96365; 99285; J0696; J1650; J1956

== ENCOUNTER 2021-03-15 12:56 | Outpatient (REF) | payer MEDICARE, SELFPAY ==
[2021-03-15 14:10] LABS: MANUAL DIFF FLAG NO
[2021-03-15 14:16] LABS: Basophils Percent Auto 0.3 % (0-2); Eosinophils Percent Auto 0.5 % (0-4); Hematocrit 43.8 % (37-47); Hemoglobin 13.9 g/dl (12.0-16.0); Imm Gran Abs Auto 0.02 X10*3/uL (0.00-0.03); Imm Gran Pct Auto 0.3 % (0.0-0.4); Lymphocytes Percent Auto 30.7 % (20-40); Mean Corpuscular HGB Conc 31.7 g/dl (31.0-35.0); Mean Corpuscular Hemoglobin 30.2 pg (27.0-33.0); Mean Platelet Volume 10.7 fL (9.4-12.3); Monocytes Absolute Auto 0.5 X10*3/uL (0.1-1.2); Neutrophils Absolute Auto 3.9 X10*3/uL (2.0-8.3); Neutrophils Percent Auto 61.2 % (45-73); Platelet Count 226 X10*3/uL (160-400); Red Blood Count 4.61 X10*6/uL (4.20-5.50); Red Cell Distribution Width 11.9 % (11.0-16.0); White Blood Count 6.4 X10*3/uL (4.8-10.8)
[2021-03-15 14:51] LABS: Alanine Aminotransferase 10 U/L (0-31); Albumin Level 4.3 g/dL (3.5-5.0); Alkaline Phosphatase 84 U/L (39-117); Anion Gap 12 (12-20); Aspartate Amino Transferase 14 U/L (5-31); Bilirubin Total 0.6 mg/dL (0.0-1.0); Blood Urea Nitrogen 17 mg/dL (9-16); Calcium 10.9 mg/dL (8.4-10.2); Carbon Dioxide 28 mmol/L (22-29); Chloride 105 mmol/L (96-108); Estimated Glomerular Filt Rate > 60; Glucose Random 98 mg/dL (60-115); Potassium 4.4 mmol/L (3.3-5.1); Sodium 141 mmol/L (135-145); Total Protein 6.7 g/dL (6.5-8.0)
[2021-03-15 15:08] LABS: Free T4 (Free Thyroxine) 0.99 ng/dL (0.71-1.85)
== END 2021-03-15 12:57 | disposition home or self-care (01) ==
LOC: HO.HMGCLDS 12:56
PROVIDERS: PCP Family Medicine; Visit Provider Family Medicine
DX: R53.1 Weakness (principal); E78.00 Pure hypercholesterolemia, unspecified; Z79.899 Other long term (current) drug therapy
CPT/HCPCS: 36415; 80053; 82550; 84439; 85025

== ENCOUNTER 2021-03-23 15:50 | Emergency (ER) | payer MEDICARE, SELFPAY ==
[2021-03-23 16:57] LABS: Glucose Urine UA NEG (NEG); Leukocyte Esterase Urine NEG (NEG); Nitrite Urine NEG (NEG); Specific Gravity - Urine <= 1.005 (1.005-1.025); Urine Blood NEG (NEG); Urine Ketones NEG (NEG); Urine Protein NEG (NEG-TRACE)
[2021-03-23 16:58] LABS: Appearance Urine CLEAR; Color Urine YELLOW
[2021-03-23 18:54] VITALS: BP 190/106; PULSE 88; RESP 17; TEMP 36.6; O2SAT 96; BMI 20.6
[2021-03-23 19:10] LABS: MANUAL DIFF FLAG NO
[2021-03-23 19:23] LABS: Basophils Percent Auto 0.3 % (0-2); Eosinophils Percent Auto 0.5 % (0-4); Hematocrit 44.2 % (37-47); Hemoglobin 14.7 g/dl (12.0-16.0); Imm Gran Abs Auto 0.03 X10*3/uL (0.00-0.03); Imm Gran Pct Auto 0.5 % (0.0-0.4); Lymphocytes Absolute Auto 1.6 X10*3/uL (1.2-4.9); Lymphocytes Percent Auto 26.7 % (20-40); Mean Corpuscular HGB Conc 33.3 g/dl (31.0-35.0); Mean Corpuscular Hemoglobin 30.8 pg (27.0-33.0); Mean Corpuscular Volume 92.7 fL (80-98); Mean Platelet Volume 10.5 fL (9.4-12.3); Monocytes Absolute Auto 0.4 X10*3/uL (0.1-1.2); NRBC Pct Auto 0.3 /100WBC (0.0-0.2); Neutrophils Absolute Auto 3.9 X10*3/uL (2.0-8.3); Platelet Count 198 X10*3/uL (160-400); Red Blood Count 4.77 X10*6/uL (4.20-5.50); Red Cell Distribution Width 11.7 % (11.0-16.0); White Blood Count 5.9 X10*3/uL (4.8-10.8)
[2021-03-23 19:39] LABS: Anion Gap 10 (12-20); Blood Urea Nitrogen 12 mg/dL (9-16); Carbon Dioxide 28 mmol/L (22-29); Chloride 105 mmol/L (96-108); Creatinine Clr Calc Pharmacy 44.1; Estimated Glomerular Filt Rate > 60; Glucose Random 121 mg/dL (60-115); Sodium 139 mmol/L (135-145)
--- NOTE | 2021-03-23 21:27 | ED.GENADULT ---
HPI - General Adult General Chief complaint: General Medical Stated complaint: uti? Time Seen by Provider: 03/23/21 21:27 History of Present Illness HPI narrative: Patient is an 85-year-old female presented today with having burning after she urinates. Patient worried she has urinary tract infection. No fever no chills no chest pain or shortness of breath has some mild weakness. Nonspecific. Patient is able to ambulate at home. Patient had history of urinary tract infection was extremely concerned that she might be starting another infection that is why she came to the emergency department. She has no fever no chills no chest pain or shortness of breath. No systemic complaints. Related Data Home Medications Medication Instructions Recorded Confirmed aspirin 81 mg PO DAILY 10/21/20 10/21/20 atorvastatin 20 mg PO DAILY 10/21/20 10/21/20 bisoprolol fumarate 5 mg PO DAILY 10/21/20 10/21/20 doxazosin 2 mg PO DAILY 10/21/20 10/21/20 lorazepam 0.25 mg PO Q8H PRN 10/21/20 10/21/20 omeprazole 20 mg PO BID 10/21/20 10/21/20 Previous Rx's Medication Instructions Recorded levofloxacin 750 mg PO DAILY #5 tab 10/22/20 Allergies Allergy/AdvReac Type Severity Reaction Status Date / Time No Known Allergies Allergy Verified 10/21/20 11:24 Review of Systems Review of Systems: Constitutional: No Weight loss, No Fever, No Chills, No Night Sweats, No Fatigue, No Malaise ENT/Mouth: No Hearing loss, No Ear Pain, No Nasal Congestion, No Sinus Pain, No Hoarseness, No sore throat, No Rhinorrhea, No Swallowing Difficulty Eyes: No Eye Pain, No Swelling, No Redness, No Foreign Body, No Discharge, No Vision Changes Cardiovascular: No Chest Pain, No SOB, No Dyspnea on Exertion, No Orthopnea, No Edema, No Palpitations Respiratory: No Cough, No Sputum, No Wheezing, No Smoke Exposure, No Dyspnea Gastrointestinal: No Nausea, No Vomiting, No Diarrhea, No Constipation, No abdominal Pain, No Hematochezia, No Melena Genitourinary: no irregular bleeding, positive Dysuria, No Urinary Frequency, No Hematuria, No Urinary Incontinence, No Urgency, No Flank Pain, No Urinary Flow Changes, No Hesitancy Musculoskeletal: No joint pain, No Myalgias, No Joint Swelling Skin: No Skin Lesions, No rash Neuro: No Weakness, No Numbness, No Paresthesias, No Loss of Consciousness, No Dizziness, No Headache Psych: No Anxiety/Panic, No Depression, No SI/HI/AH/VH, No Social Issues, Heme/Lymph: No Bruising, No Bleeding,No Lymphadenopathy Endocrine: No Polyuria, No Polydipsia, No Temperature Intolerance [facility] Past Medical History Medical History Anxiety GERD (gastroesophageal reflux disease) HLD (hyperlipidemia) Hypertension Sepsis UTI (urinary tract infection) Surgical History H/O: hysterectomy Social History Social History Alcohol intake: never Advance Directives: No Advance Directives Information Provided: No service: No Current occupational status: retired Physical Exam Vital Signs: Vital Signs: Last Vital Signs Temp 97.8 F 03/23/21 18:54 Pulse 88 03/23/21 18:54 Resp 17 03/23/21 18:54 BP 190/106 H 03/23/21 18:54 Pulse Ox 96 03/23/21 18:54 Body Mass Index 20.6 Appearance: Alert. Oriented X3. No acute distress. Eyes: Pupils equal, round and reactive to light. ENT: Pharynx normal. Neck: Normal inspection. Neck supple. No lymph nodes noted. No crepitus CVS: Normal heart rate and rhythm. Pulses normal. Normal S1 and S2 Respiratory: No respiratory distress. Breath sounds normal. No Wheezing. No rales Abdomen: Soft and nontender. No rigidity. No distention. good BS x4 Skin: Skin warm and dry. Normal skin color. Normal skin turgor. Extremities: No lower extremity edema. Neurovascular intact to all extremities. No Lacerations. No Rash Neuro: Oriented X 3. No motor deficit. No sensory deficit. Moving all extermities. No slurred speech Medical Decision Making MDM Narrative Medical decision making narrative: Patient well-appearing no acute distress. Urine was negative. Electrolytes normal. Patient's CBC showed a normal hemoglobin. Will discharge patient home no distress. In stable condition. Lab Data Result diagrams: 03/23/21 19:06 03/23/21 19:06 Labs: Lab Results 03/23/21 03/23/21 03/23/21 Range/Units 16:44 19:06 19:06 WBC 5.9 (4.8-10.8) X10*3/uL RBC 4.77 (4.20-5.50) X10*6/uL Hgb 14.7 (12.0-16.0) g/dl Hct 44.2 (37-47) % MCV 92.7 (80-98) fL MCH 30.8 (27.0-33.0) pg MCHC 33.3 (31.0-35.0) g/dl RDW 11.7 (11.0-16.0) % Plt Count 198 (160-400) X10*3/uL MPV 10.5 (9.4-12.3) fL Immature Gran % (Auto) 0.5 H (0.0-0.4) % Neut % (Auto) 66.0 (45-73) % Lymph % (Auto) 26.7 (20-40) % [place] % (Auto) 6.0 (2-11) % Eos % (Auto) 0.5 (0-4) % Baso % (Auto) 0.3 (0-2) % Lymph # (Auto) 1.6 (1.2-4.9) X10*3/uL [place] # (Auto) 0.4 (0.1-1.2) X10*3/uL Eos # (Auto) 0.0 (0.0-0.4) X10*3/uL Baso # (Auto) 0.0 (0.0-0.2) X10*3/uL Abs Immat Gran (auto) 0.03 (0.00-0.03) X10*3/uL Absolute Neuts (auto) 3.9 (2.0-8.3) X10*3/uL Absolute Nucleated RBC 0.020 H (0.0-0.012) X10*3/uL Nucleated RBC % (auto) 0.3 H (0.0-0.2) /100WBC Sodium 139 (135-145) mmol/L Potassium 4.0 (3.3-5.1) mmol/L Chloride 105 (96-108) mmol/L Carbon Dioxide 28 (22-29) mmol/L Anion Gap 10 L (12-20) BUN 12 (9-16) mg/dL Creatinine 0.75 (0.5-1.4) mg/dL Estim Creat Clear Calc 44.1 Estimated GFR > 60 Random Glucose 121 H (60-115) mg/dL Calcium 11.0 H (8.4-10.2) mg/dL Urine Color YELLOW Urine Appearance CLEAR Urine pH 6.0 (5.0-8.0) Ur Specific [place] <= 1.005 (1.005-1.025) Urine Protein NEG (NEG-TRACE) MG/DL Urine Glucose (UA) NEG (NEG) MG/DL Urine Ketones NEG (NEG) MG/DL Urine Blood NEG (NEG) Urine Nitrite NEG (NEG) Ur Leukocyte Esterase NEG (NEG) Discharge Plan Discharge Clinical Impression: Weakness Patient Disposition: Home, Self-Care Instructions: Weakness (ED) Prescriptions: No Action doxazosin 2 mg Tablet 2 mg PO DAILY RF: 0 lorazepam 0.5 mg Tablet 0.25 mg PO Q8H PRN (Reason: Anxiety) RF: 0 omeprazole 20 mg Capsule,Delayed Release(Dr/Ec) 20 mg PO BID RF: 0 atorvastatin 20 mg Tablet 20 mg PO DAILY RF: 0 bisoprolol fumarate 5 mg Tablet 5 mg PO DAILY RF: 0 aspirin 81 mg Tablet 81 mg PO DAILY RF: 0 levofloxacin 750 mg tablet 750 mg PO DAILY Qty: 5 RF: 0 Referrals: Angel Jacobson MD [Primary Care Provider] - 2 days
== END 2021-03-23 21:40 | disposition home or self-care (01) ==
PROVIDERS: Emergency Provider Emergency Medicine Emergency Medical Services; PCP Family Medicine
DX: R53.1 Weakness (principal); I10 Essential (primary) hypertension; E78.5 Hyperlipidemia, unspecified; Z79.02 Long term (current) use of antithrombotics/antiplatelets; Z87.440 Personal history of urinary (tract) infections; Z79.899 Other long term (current) drug therapy
CPT/HCPCS: 36415; 80048; 81003; 85025; 99283; 99284

== ENCOUNTER 2021-05-23 14:10 | Emergency (ER) | payer MEDICARE, SELFPAY ==
--- NOTE | ~2021-05-23 | CT_ITS ---
EXAMINATION: CT HEAD/BRAIN WITHOUT CONTRAST CLINICAL INFORMATION: Fall COMPARISON: None. TECHNIQUE: CT scanning from base of skull to vertex performed without IV contrast administration. This CT examination was performed using dose optimization techniques as appropriate, variously including the following: *Automated exposure control *Adjustment of mA and/or kV according to patient size (this includes techniques or standardized protocols for targeted exams where dose is matched to indication/reason for exam; i.e. extremities or head) *Use of iterative reconstruction technique DLP: 542.97 mGy-cm. FINDINGS: There is a large right-sided subdural hematoma which appears to be acute on chronic with a width of approximately 1.7 cm and extending for approximately 8 cm in vertical height. There is approximately 4 mm of midline structure shift to the left. There is some mild effacement of the right lateral ventricle and posterior horn with effacement of a few adjacent sulci with the quadrigeminal plate cistern appearing unremarkable. There is also some subarachnoid blood seen as well as a frontal falx subdural hematoma. There is a large amount of periventricular white matter low density consistent with microangiopathy. There is also noted to be a comminuted depressed right superior/lateral orbital fracture with fragment of bone seen adjacent to the globe but not definitely penetrating it. There is overlying soft tissue swelling seen. There is a small amount of fluid within the right maxillary sinus. Orbital fracture fragments and gas bubbles are seen about the extraconal orbit. There is also nondisplaced fracture of the orbital floor. No muscular entrapment is appreciated. CT/CT cervical spine wo con IMPRESSION: Right-sided subdural and subarachnoid blood as described with 4 mm of midline structure shift to the left. Comminuted and depressed superior lateral orbital bone fracture as well as nondisplaced orbital floor fracture. This critical result was discussed with Dr. Carrero at 3:40 PM on May 23, 2021 and it was ascertained that the content and urgency of the report was understood at the time of direct communication. EXAMINATION: CT OF THE CERVICAL SPINE CLINICAL INFORMATION: Fall. COMPARISON: None. TECHNIQUE: Thin helical images with sagittal and coronal reformats. This CT examination was performed using dose optimization techniques as appropriate, variously including the following: *Automated exposure control *Adjustment of mA and/or kV according to patient size (this includes techniques or standardized protocols for targeted exams where dose is matched to indication/reason for exam; i.e. extremities or head) *Use of iterative reconstruction technique DOSE: DLP 223.43 mGy-cm FINDINGS: No abnormal prevertebral soft tissue swelling is seen. There is disc space narrowing with marginal spurring and some spurring about the joints of [place] at C5-C7 with some anterior neural foraminal encroachment. Carotid artery calcifications present. No acute cervical spine fracture is identified. Pterygoid plates appear intact. No significant temporal mandibular joint abnormality appreciated. IMPRESSION: Cervical spondylosis without acute cervical spine fracture.
[2021-05-23 14:22] VITALS: BP 142/84; BP 155/91; PULSE 81; PULSE 89; RESP 16; TEMP 36.4; O2SAT 100; O2SAT 98; BMI 21.2
--- NOTE | 2021-05-23 14:53 | ED_ITS ---
HPI - Fall General Chief Complaint: Fall Stated Complaint: MECHANICAL FALL,HEAD/WRIST LAC Time Seen by Provider: 05/23/21 14:29 History of Present Illness HPI Narrative: Patient is 85 years old history of hypertension, high cholesterol, currently not on any blood thinners. [place] the [employer] [place] was positive loss of consciousness unsure as the reason of the fall. Patient does not have any fever chills coughing congestion upper respiratory symptoms. No nausea no vomiting. Patient positive generalized malaise. Complaining of pain to her head and also to the right hand. Related Data Home Medications Medication Instructions Recorded Confirmed aspirin 81 mg tablet 81 mg PO DAILY 10/21/20 10/21/20 atorvastatin 20 mg tablet 20 mg PO DAILY 10/21/20 10/21/20 bisoprolol fumarate 5 mg tablet 5 mg PO DAILY 10/21/20 10/21/20 doxazosin 2 mg tablet 2 mg PO DAILY 10/21/20 10/21/20 lorazepam 0.5 mg tablet 0.25 mg PO Q8H PRN 10/21/20 10/21/20 omeprazole 20 mg capsule,delayed 20 mg PO BID 10/21/20 10/21/20 release Previous Rx's Medication Instructions Recorded levofloxacin 750 mg tablet 750 mg PO DAILY #5 tab 10/22/20 Allergies Allergy/AdvReac Type Severity Reaction Status Date / Time No Known Allergies Allergy Verified 10/21/20 11:24 Review of Systems Review of Systems: Constitutional: No Weight loss, No Fever, No Chills, No Night Sweats, No Fatigue, No Malaise ENT/Mouth: No Hearing loss, No Ear Pain, No Nasal Congestion, No Sinus Pain, No Hoarseness, No sore throat, No Rhinorrhea, No Swallowing Difficulty Eyes: No Eye Pain, No Swelling, No Redness, No Foreign Body, No Discharge, No Vision Changes Cardiovascular: No Chest Pain, No SOB, No Dyspnea on Exertion, No Orthopnea, No Edema, No Palpitations Respiratory: No Cough, No Sputum, No Wheezing, No Smoke Exposure, No Dyspnea Gastrointestinal: No Nausea, No Vomiting, No Diarrhea, No Constipation, No abdominal Pain, No Hematochezia, No Melena Genitourinary: no irregular bleeding, No Dysuria, No Urinary Frequency, No Hematuria, No Urinary Incontinence, No Urgency, No Flank Pain, No Urinary Flow Changes, No Hesitancy Musculoskeletal: No joint pain, No Myalgias, No Joint Swelling, Skin: Positive abrasion to the right wrist and to the right hand Neuro: Positive Weakness, No Numbness, No Paresthesias, No Loss of Consciousness, No Dizziness, positive Headache Psych: No Anxiety/Panic, No Depression, No SI/HI/AH/VH, No Social Issues, Heme/Lymph: No Bruising, No Bleeding,No Lymphadenopathy Endocrine: No Polyuria, No Polydipsia, No Temperature Intolerance [facility] Past Medical History Medical History Anxiety GERD (gastroesophageal reflux disease) HLD (hyperlipidemia) Hypertension Sepsis UTI (urinary tract infection) Surgical History H/O: hysterectomy Social History Social History Alcohol intake: never service: No Current occupational status: retired Physical Exam Vital Signs: Vital Signs: Last Vital Signs Temp 97.5 F 05/23/21 14:22 Pulse 81 05/23/21 14:22 Resp 16 05/23/21 14:22 BP 155/91 H 05/23/21 14:22 Pulse Ox 100 05/23/21 14:22 Body Mass Index 21.2 Appearance: Alert. Oriented X3. No acute distress. Eyes: Pupils equal, round and reactive to light. Large hematoma to the right frontal area approximately 3 cm x 5 cm in size. Positive laceration approximately 2 cm in size. ENT: Pharynx normal. Neck: Normal inspection. No lymph nodes noted. No crepitus, trachea is midline. There is no gross deformities noted. There is no gross posterior cervical spine tenderness. No step-off noted. CVS: Normal heart rate and rhythm. Pulses normal. Normal S1 and S2 Respiratory: No respiratory distress. Breath sounds normal. No Wheezing. No rales Abdomen: Soft and nontender. No rigidity. No distention. good BS x4 Skin: Skin warm and dry. Normal skin color. Normal skin turgor. Positive abrasion noted in the right hand good range of motion at the wrist and enhance. There is no anatomical snuffbox tenderness elicited on palpation Extremities: No lower extremity edema. Neurovascular intact to all extremities. No Lacerations. No Rash Neuro: Oriented X 3. No motor deficit. No sensory deficit. Moving all extermities. No slurred speech MDM - Fall MDM Narrative Medical decision making narrative: There appearing no acute distress positive large hematoma to the right frontal area positive loss of consciousness not on blood thinners. Moving all extremities neurologically grossly intact. CT scan showed a large epidural bleed. This critical finding was discussed with Dr. Morales from the trauma surgery team at [facility]. Will transfer patient to [facility] for emergent Trauma Team evaluation along with neurosurgical consult. Head of bed was raised at 30 degrees. Patient's neurological exam was reassessed he is still awake alert oriented. Explained the risk and benefit of transfer and agreed. Medical Records Attestation: I reviewed the patient's medical records. Lab Data Attestation: I reviewed the patient's lab results. Critical Care Time Critical Care Time Critical Care Time: Yes Total Critical Care Time: 40 Attestation: I have personally provided 40 minutes of critical care time exclusive of time spent on separately billable procedures. Time includes review of lab data, radiology results, discussion with consultants, and monitoring for potential decompensation. Interventions were performed as documented above Discharge Plan Discharge Clinical Impression: Epidural hematoma Patient Disposition: [facility] Transfer Details: Transferred to [facility] Prescriptions: No Action doxazosin 2 mg Tablet 2 mg PO DAILY RF: 0 lorazepam 0.5 mg Tablet 0.25 mg PO Q8H PRN (Reason: Anxiety) RF: 0 omeprazole 20 mg Capsule,Delayed Release(Dr/Ec) 20 mg PO BID RF: 0 atorvastatin 20 mg Tablet 20 mg PO DAILY RF: 0 bisoprolol fumarate 5 mg Tablet 5 mg PO DAILY RF: 0 aspirin 81 mg Tablet 81 mg PO DAILY RF: 0 levofloxacin 750 mg tablet 750 mg PO DAILY Qty: 5 RF: 0
[2021-05-23 15:03] VITALS: BP 158/70; PULSE 73; RESP 26; O2SAT 99
--- NOTE | 2021-05-23 15:04 | PC.NURSE ---
pt to be transferred to [facility]. VS WNL. IV ACCESS OBTAINED BILATERALLY.
[2021-05-23 15:07] LABS: MANUAL DIFF FLAG NO
[2021-05-23] MEDS: Diphth,Pertus(ACell),Tet Adult 0.5 ML SYRINGE IM (15:09)
[2021-05-23 15:25] LABS: Basophils Percent Auto 0.3 % (0-2); Eosinophils Percent Auto 0.6 % (0-4); Hematocrit 39.4 % (37-47); Hemoglobin 13.1 g/dl (12.0-16.0); Imm Gran Abs Auto 0.07 X10*3/uL (0.00-0.03); Lymphocytes Absolute Auto 1.9 X10*3/uL (1.2-4.9); Mean Corpuscular HGB Conc 33.2 g/dl (31.0-35.0); Mean Corpuscular Hemoglobin 31.3 pg (27.0-33.0); Mean Platelet Volume 10.7 fL (9.4-12.3); Monocytes Absolute Auto 0.5 X10*3/uL (0.1-1.2); Neutrophils Absolute Auto 4.4 X10*3/uL (2.0-8.3); Neutrophils Percent Auto 64.1 % (45-73); Platelet Count 168 X10*3/uL (160-400); Red Blood Count 4.19 X10*6/uL (4.20-5.50); White Blood Count 6.9 X10*3/uL (4.8-10.8)
[2021-05-23 15:32] LABS: Anion Gap 15 (12-20); Blood Urea Nitrogen 12 mg/dL (9-16); Calcium 10.4 mg/dL (8.4-10.2); Carbon Dioxide 23 mmol/L (22-29); Chloride 108 mmol/L (96-108); Creatinine Clr Calc Pharmacy 44.4; Estimated Glomerular Filt Rate > 60; Glucose Random 134 mg/dL (60-115); Potassium 4.2 mmol/L (3.3-5.1); Sodium 142 mmol/L (135-145)
[2021-05-23 15:34] LABS: Troponin-I High Sensitivity 4.1 ng/L (<3.5-17.0)
== END 2021-05-23 15:20 | disposition short-term general hospital (02) ==
LOC: HO.ED 15:11
PROVIDERS: Emergency Provider Emergency Medicine Emergency Medical Services; PCP Family Medicine
DX: S06.4X9A Epidural hemorrhage with loss of consciousness of unspecified duration, initial encounter (principal); S01.81XA Laceration without foreign body of other part of head, initial encounter; S60.511A Abrasion of right hand, initial encounter; I10 Essential (primary) hypertension; Z79.82 Long term (current) use of aspirin; Z79.899 Other long term (current) drug therapy; W19.XXXA Unspecified fall, initial encounter; Y93.9 Activity, unspecified; Y92.512 Supermarket, store or market as the place of occurrence of the external cause; Y99.9 Unspecified external cause status
CPT/HCPCS: 36415; 70450; 72125; 80048; 82550; 84484; 85025; 90471; 90715; 99284; 99285